=== PATIENT | male | born 1985 ===

== ENCOUNTER 2020-06-07 02:11 | Emergency (ER) | payer SELFPAY ==
[~2020-06-07] VITALS: Ht 182.9 cm; Wt 118.2 kg
[2020-06-07 02:17] VITALS: BP 138/106
--- NOTE | 2020-06-07 02:23 | NUR ---
HE KEEPS BULLYING EVERYBODY. SAYING HE HASN'T GONE TO COLLE[employer] AND MAKES MORE THAN ANYBODY ELSE. HE IS BEING A JERK.
== END 2020-06-07 02:30 | disposition home or self-care (01) ==
LOC: ER 02:13
DX: F10.929 Alcohol use, unspecified with intoxication, unspecified (principal)
CPT/HCPCS: 99283